=== PATIENT | female | born 1975 | race Caucasian/White ===

== ENCOUNTER 2017-01-28 12:45 | Emergency (ER) | payer OTHER ==
[~2017-01-28] VITALS: Ht 162.6 cm; Wt 107.9 kg
[2017-01-28 12:46] VITALS: BP 171/115
== END 2017-01-28 13:17 | disposition home or self-care (01) ==
LOC: ED 13:15
DX: Z76.1 Encounter for health supervision and care of foundling (principal); Z53.21 Procedure and treatment not carried out due to patient leaving prior to being seen by health care provider

== ENCOUNTER → 2017-05-12 | Outpatient (CLI) | payer OTHER ==
[2017-05-12 11:40] LABS: HEMATOCRIT 39.7 % (34.6-47.8); WHITE BLOOD COUNT 7.2 x10^3/uL (3.4-10)
[2017-05-12 11:46] LABS: ASPARTATE AMINO TRANSFERASE 11 U/L (15-37); BLOOD UREA NITROGEN 13 mg/dL (7-18)
== END | disposition home or self-care (01) ==
LOC: LAB 11:20
PROVIDERS: ATTEND Family Medicine
DX: Z13.220 Encounter for screening for lipoid disorders (principal); Z13.1 Encounter for screening for diabetes mellitus; R53.83 Other fatigue; E78.5 Hyperlipidemia, unspecified; E55.9 Vitamin D deficiency, unspecified; R79.89 Other specified abnormal findings of blood chemistry
CPT/HCPCS: 36415; 80053; 80061; 82306; 82607; 82746; 83036; 84443; 85025

== ENCOUNTER → 2017-05-13 | Outpatient (CLI) | payer OTHER | END | disposition home or self-care (01) | LOC: CFH 09:06 | PROVIDERS: ATTEND Family Medicine | DX: Z12.31 Encounter for screening mammogram for malignant neoplasm of breast (principal); E04.2 Nontoxic multinodular goiter | CPT/HCPCS: 76536; G0202 ==

== ENCOUNTER → 2017-05-20 | Outpatient (CLI) | payer OTHER ==
[2017-05-20 15:29] LABS: HIV 1&2 ANTIBODY SCREEN Nonreactive (Nonreactive); HIV-1 p24 ANTIGEN Nonreactive (Nonreactive)
[2017-05-21 06:11] LABS: HSV 2 IGG TYPE SPECIFIC <0.91 index (0.00-0.90)
== END | disposition home or self-care (01) ==
LOC: LAB 14:30
PROVIDERS: ATTEND Family Medicine
DX: Z11.3 Encounter for screening for infections with a predominantly sexual mode of transmission (principal)
CPT/HCPCS: 36415; 86592; 86695; 86696; 86703; 87491; 87591; 87899; G0435

== ENCOUNTER → 2017-11-26 | Outpatient (CLI) | payer OTHER ==
[2017-11-26 12:21] LABS: CHOL/HDL RATIO 2.2; THYROID STIMULATING HORMONE 2.76 mIU/L (0.358-3.740)
[2017-11-26 12:53] LABS: HEMOGLOBIN A1C 5.3 % (4.2-6.3)
== END | disposition home or self-care (01) ==
LOC: LAB 11:27
PROVIDERS: ATTEND Family Medicine
DX: Z13.220 Encounter for screening for lipoid disorders (principal); Z13.1 Encounter for screening for diabetes mellitus; E04.1 Nontoxic single thyroid nodule; E55.9 Vitamin D deficiency, unspecified; R79.89 Other specified abnormal findings of blood chemistry
CPT/HCPCS: 36415; 80061; 82306; 83036; 84443

== ENCOUNTER → 2018-05-17 | Outpatient (CLI) | payer OTHER | END | disposition home or self-care (01) | LOC: CFH 12:43 | PROVIDERS: ATTEND Family Medicine | DX: Z12.31 Encounter for screening mammogram for malignant neoplasm of breast (principal) | CPT/HCPCS: 77063; 77067 ==

== ENCOUNTER → 2018-06-01 | Outpatient (CLI) | payer OTHER ==
[2018-06-01 10:37] LABS: HCT (SEDRATE) 39.8 % (34.6-47.8)
== END | disposition home or self-care (01) ==
LOC: RAD 09:49
PROVIDERS: ATTEND Family Medicine
DX: R06.02 Shortness of breath (principal); M25.50 Pain in unspecified joint; R53.83 Other fatigue; R60.0 Localized edema; M79.89 Other specified soft tissue disorders
CPT/HCPCS: 36415; 71046; 82306; 84443; 85651; 86038; 86430; 86592; 86696; 87491; 87591; 87806; 93970; G0475

== ENCOUNTER → 2018-06-14 | Outpatient (CLI) | payer OTHER | END | disposition home or self-care (01) | LOC: CVU 13:16 | PROVIDERS: ATTEND Family Medicine | DX: I83.813 Varicose veins of bilateral lower extremities with pain (principal) | CPT/HCPCS: 93306; 93970 ==

== ENCOUNTER → 2019-01-02 | Outpatient (CLI) | payer OTHER ==
[2019-01-02 10:13] LABS: BASOPHILS # (AUTO) 0.04 x10^3/uL (0-0.1); BASOPHILS % (AUTO) 1 % (0-1); EOSINOPHILS # (AUTO) 0.11 x10^3/uL (0-0.4); EOSINOPHILS % (AUTO) 2 % (1-7); LYMPHOCYTES # (AUTO) 1.34 x10^3/uL (1-3.4); LYMPHOCYTES % (AUTO) 20 % (22-44); MD NO; MEAN CORPUSCULAR HEMOGLOBIN 26.8 pg (27.0-34.8); MEAN CORPUSCULAR HGB CONC 33.7 g/dL (32.4-35.8); MEAN CORPUSCULAR VOLUME 79.5 fL (80-100); MEAN PLATELET VOLUME 9.8 fL (7.4-10.4); MONOCYTES % (AUTO) 4 % (2-9); NEUTROPHILS # (AUTO) 4.98 x10^3/uL (1.8-6.8); NEUTROPHILS % (AUTO) 74 % (42-75); PLATELET COUNT 237 x10^3/uL (130-400); RED CELL DISTRIBUTION WIDTH 14.2 % (9.6-15.2)
[2019-01-02 10:21] LABS: CHLORIDE 111 mmol/L (98-107)
[2019-01-02 10:24] LABS: ALANINE AMINOTRANSFERASE 16 U/L (12-78); ALKALINE PHOSPHATASE 75 U/L (45-117); BILIRUBIN,TOTAL 0.6 mg/dL (0.2-1.0); CHOLESTEROL, TOTAL 157 mg/dL (140-239); TOTAL PROTEIN 7.1 g/dL (6.4-8.2); TRIGLYCERIDES 122 mg/dL (50-200); VLDL CHOLESTEROL 24 mg/dL (0-25)
[2019-01-02 10:30] LABS: ALBUMIN 3.6 g/dL (3.4-5.0); ANION GAP 7 mmol/L (5-15); CALCIUM 8.5 mg/dL (8.5-10.1); CHOL/HDL RATIO 3.4; FREE T4 (FREE THYROXINE) 1.24 ng/dL (0.76-1.46); HDL CHOL % 29 % (28-40); HDL CHOLESTEROL (DIRECT) 46 mg/dL (40-60); LDL CHOLESTEROL,CALCULATED 87 mg/dL (54-169); LDL/HDL RATIO 1.9 (0.5-3.0)
[2019-01-02 10:42] LABS: MICROSCOPIC AUTO
[2019-01-02 12:08] LABS: HEMOGLOBIN A1C 5.6 % (4.2-6.3)
== END | disposition home or self-care (01) ==
LOC: LAB 09:19
PROVIDERS: ATTEND Family Medicine
DX: Z00.00 Encounter for general adult medical examination without abnormal findings (principal)
CPT/HCPCS: 36415; 80053; 80061; 81001; 83036; 84439; 84443; 84481; 84702; 85025; 86592; 86696; 86803; 87340; 87491; 87591; 87806; G0475

== ENCOUNTER 2019-02-04 19:46 | Emergency (ER) | payer OTHER ==
[~2019-02-04] VITALS: Ht 162.6 cm; Wt 113.0 kg
[2019-02-04] MEDS ORDERED: KETOROLAC 30 MG/1 ML ONE (20:48)
[2019-02-04] MEDS ORDERED: METHOCARBAMOL 750 MG TABLET ONE (20:48)
[2019-02-04] MEDS ORDERED: HYDROcodone/APAP 5/325 TABLET ONE (20:49)
--- NOTE | 2019-02-04 20:50 | NUR ---
pt to us. report to britt huitron.
[2019-02-04] MEDS ORDERED: METHOCARBAMOL 750 MG TABLET PO ONE (21:00)
[2019-02-04] MEDS ORDERED: HYDROcodone/APAP 5/325 TABLET PO ONE (21:00)
[2019-02-04] MEDS ORDERED: KETOROLAC 30 MG/1 ML IM ONE (21:00)
--- NOTE | 2019-02-04 21:10 | NUR ---
pt to ed for mglf with pain to lower back after hitting metal trash can this afternoon. pt connected to monitors. vss. edmd assessment complete. orders received. labs drawn. hcg negative. pt medicated per nov. awaiting xr.
--- NOTE | 2019-02-04 21:20 | NUR ---
pt to imaging.
--- NOTE | 2019-02-04 21:38 | NUR ---
pt back from rad. new orders for us recevied at this time.
[2019-02-04] MEDS ORDERED: MORPHINE SULFATE 4 MG/ML, 1ML ONE (22:14)
[2019-02-04] MEDS ORDERED: ONDANSETRON 2MG/ML, 2ML ONE (22:14)
[2019-02-04] MEDS ORDERED: MORPHINE SULFATE 4 MG/ML, 1ML IVPush ONE (22:30)
[2019-02-04] MEDS ORDERED: ONDANSETRON 2MG/ML, 2ML IVPush ONE (22:30)
[2019-02-04 22:35] LABS: BASOPHILS # (AUTO) 0.04 x10^3/uL (0-0.1); BASOPHILS % (AUTO) 1 % (0-1); EOSINOPHILS # (AUTO) 0.29 x10^3/uL (0-0.4); EOSINOPHILS % (AUTO) 4 % (1-7); LYMPHOCYTES # (AUTO) 2.22 x10^3/uL (1-3.4); LYMPHOCYTES % (AUTO) 27 % (22-44); MD NO; MEAN CORPUSCULAR HEMOGLOBIN 26.6 pg (27.0-34.8); MEAN CORPUSCULAR HGB CONC 32.7 g/dL (32.4-35.8); MEAN CORPUSCULAR VOLUME 81.4 fL (80-100); MEAN PLATELET VOLUME 10.7 fL (7.4-10.4); MONOCYTES # (AUTO) 0.33 x10^3/uL (0.2-0.8); MONOCYTES % (AUTO) 4 % (2-9); NEUTROPHILS # (AUTO) 5.48 x10^3/uL (1.8-6.8); NEUTROPHILS % (AUTO) 66 % (42-75); PLATELET COUNT 301 x10^3/uL (130-400); RED BLOOD COUNT 5.08 x10^6/uL (3.82-5.3); RED CELL DISTRIBUTION WIDTH 14.5 % (9.6-15.2)
[2019-02-04 22:44] LABS: ALBUMIN 4.1 g/dL (3.4-5.0); ANION GAP 11 mmol/L (5-15); CALCIUM 9.1 mg/dL (8.5-10.1); CHLORIDE 108 mmol/L (98-107)
--- NOTE | 2019-02-04 22:46 | NUR ---
PIV STARTED. PT MEDICATED PER EMAR WITH MORPHINE AND ZOFRAN. URINE SAMPLE COLLECTED AND SENT.
[2019-02-04 22:47] LABS: ALANINE AMINOTRANSFERASE 17 U/L (12-78); ALKALINE PHOSPHATASE 83 U/L (45-117); BILIRUBIN,TOTAL 0.4 mg/dL (0.2-1.0); CREATININE 0.96 mg/dL (0.55-1.02); TOTAL PROTEIN 7.8 g/dL (6.4-8.2)
[2019-02-04 22:52] LABS: CULTURE INDICATED? YES; MICROSCOPIC INDICATED
--- NOTE | 2019-02-04 23:52 | NUR ---
PT SLEEPING. VSS. UPDATED ON POC.
[2019-02-04 23:53] VITALS: BP 133/71
--- NOTE | 2019-02-05 00:42 | NUR ---
PT UPDATED ON POC. VSS.
[2019-02-05] MEDS ORDERED: HYDROcodone/APAP 5/325 TABLET ONE (00:46)
[2019-02-05] MEDS ORDERED: HYDROcodone/APAP 5/325 TABLET PO ONE (01:00)
--- NOTE | 2019-02-05 01:56 | NUR ---
CONSULTING SERVICES ASSOCIATE: PT SEEN AMBULATING STEADILY TO DC WITH PRIMARY RNLANG.
[2019-02-05] MEDS ORDERED: OMNIPAQUE 350 MG/ML, 100ML BOTTLE ONE (02:55)
== END 2019-02-05 01:58 | disposition home or self-care (01) ==
LOC: ED 21:41
DX: S32.019A Unspecified fracture of first lumbar vertebra, initial encounter for closed fracture (principal); W01.0XXA Fall on same level from slipping, tripping and stumbling without subsequent striking against object, initial encounter; Y93.89 Activity, other specified; Y92.69 Other specified industrial and construction area as the place of occurrence of the external cause; Y99.0 Civilian activity done for income or pay
CPT/HCPCS: 36415; 72110; 72128; 72131; 74177; 76770; 80053; 81001; 84703; 85025; 87086; 96372; 96374; 96375; 99284; J1885; J2405; Q9967; 96376; J2270

== ENCOUNTER 2019-03-11 18:22 | Emergency (ER) | payer OTHER ==
[~2019-03-11] VITALS: Ht 162.6 cm; Wt 112.5 kg
[2019-03-11 18:25] VITALS: BP 131/82
[2019-03-11] MEDS ORDERED: LIDOCAINE-MPF 1%, 5ML ONE (18:37)
[2019-03-11] MEDS ORDERED: LIDOCAINE-MPF 1%, 5ML INFIL ONE (19:00)
== END 2019-03-11 19:07 | disposition home or self-care (01) ==
LOC: ED 18:48
DX: S61.412A Laceration without foreign body of left hand, initial encounter (principal); X58.XXXA Exposure to other specified factors, initial encounter; Y93.89 Activity, other specified; Y92.009 Unspecified place in unspecified non-institutional (private) residence as the place of occurrence of the external cause; Y99.8 Other external cause status
CPT/HCPCS: 12041; 99284

== ENCOUNTER → 2019-03-16 | Outpatient (CLI) | payer OTHER | END | disposition home or self-care (01) | LOC: RAD 14:31 | PROVIDERS: ATTEND Family Medicine | DX: N83.202 Unspecified ovarian cyst, left side (principal); N20.0 Calculus of kidney; S32.038D Other fracture of third lumbar vertebra, subsequent encounter for fracture with routine healing; S32.028D Other fracture of second lumbar vertebra, subsequent encounter for fracture with routine healing; M43.17 Spondylolisthesis, lumbosacral region; M51.17 Intervertebral disc disorders with radiculopathy, lumbosacral region; M25.78 Osteophyte, vertebrae; M51.44 Schmorl's nodes, thoracic region; X58.XXXD Exposure to other specified factors, subsequent encounter | CPT/HCPCS: 74176 ==

== ENCOUNTER 2020-01-13 12:29 | Outpatient (CLI) | payer OTHER ==
[2020-01-13 12:56] LABS: BASOPHILS # (AUTO) 0.04 x10^3/uL (0-0.1); BASOPHILS % (AUTO) 1 % (0-1); EOSINOPHILS # (AUTO) 0.04 x10^3/uL (0-0.4); EOSINOPHILS % (AUTO) 1 % (1-7); LYMPHOCYTES # (AUTO) 1.53 x10^3/uL (1-3.4); LYMPHOCYTES % (AUTO) 21 % (22-44); MD NO; MEAN CORPUSCULAR HEMOGLOBIN 25.4 pg (27.0-34.8); MEAN CORPUSCULAR HGB CONC 32.9 g/dL (32.4-35.8); MEAN CORPUSCULAR VOLUME 77.2 fL (80-100); MEAN PLATELET VOLUME 9.9 fL (7.4-10.4); MONOCYTES # (AUTO) 0.38 x10^3/uL (0.2-0.8); MONOCYTES % (AUTO) 5 % (2-9); NEUTROPHILS # (AUTO) 5.41 x10^3/uL (1.8-6.8); NEUTROPHILS % (AUTO) 73 % (42-75); PLATELET COUNT 243 x10^3/uL (130-400); RED BLOOD COUNT 5.12 x10^6/uL (3.82-5.3); RED CELL DISTRIBUTION WIDTH 14.8 % (9.6-15.2)
[2020-01-13 13:06] LABS: ALANINE AMINOTRANSFERASE 16 U/L (12-78); ALBUMIN 3.6 g/dL (3.4-5.0); ANION GAP 8 mmol/L (5-15); CALCIUM 8.8 mg/dL (8.5-10.1); CHLORIDE 109 mmol/L (98-107); CHOLESTEROL, TOTAL 166 mg/dL (140-239); CREATININE 0.82 mg/dL (0.55-1.02); TRIGLYCERIDES 116 mg/dL (50-200); VLDL CHOLESTEROL 23 mg/dL (0-25)
[2020-01-13 13:16] LABS: ALKALINE PHOSPHATASE 85 U/L (45-117); BILIRUBIN,TOTAL 0.6 mg/dL (0.2-1.0); CHOL/HDL RATIO 3.3; HDL CHOL % 30 % (28-40); HDL CHOLESTEROL (DIRECT) 50 mg/dL (40-60); LDL CHOLESTEROL,CALCULATED 93 mg/dL (54-169); LDL/HDL RATIO 1.9 (0.5-3.0); TOTAL PROTEIN 7.5 g/dL (6.4-8.2)
== END 2020-01-13 23:59 | disposition home or self-care (01) ==
LOC: LAB 12:29
PROVIDERS: ATTEND Family Medicine
DX: Z13.1 Encounter for screening for diabetes mellitus (principal); Z13.220 Encounter for screening for lipoid disorders; E04.1 Nontoxic single thyroid nodule; E55.9 Vitamin D deficiency, unspecified; R53.83 Other fatigue
CPT/HCPCS: 36415; 80053; 80061; 82306; 83036; 84443; 85025

== ENCOUNTER 2020-03-29 04:39 | Emergency (ER) | payer OTHER ==
[~2020-03-29] VITALS: Ht 162.6 cm; Wt 120.0 kg
--- NOTE | 2020-03-29 05:06 | NUR ---
FIRST CONTACT WITH PT: PT SITTING ON GURNEY, WEAR LETY MUIR AT BS FOR EVAL AND POC. PT REPORTS NAUSEA STARTING TWO WEEKS PRIOR AFTER EYE INFECTION. PT IN TODAY DUE TO ABDOMINAL PAIN AND CRAMPING AFTER EATING POPCORN IN [place], PT HAS HX OF DIVERTICULITIS SINCE LAST EVENING AT 6 AM. LAST MENSTRUAL PERIOD 02/25, PT NOT USING PROTECTION AT THIS TIME PT NAD, VSS, AT BS. PT PLACE ON BP/SPO2 MONITOR. WCTM. GIVEN WARM BLANKET FOR COMFORT.
[2020-03-29] MEDS ORDERED: ONDANSETRON 2MG/ML, 2ML ONE (05:26)
[2020-03-29] MEDS ORDERED: HYDROmorphone 1 MG/ML, 1ML INJ ONE ×2 (05:26→07:50)
[2020-03-29] MEDS ORDERED: SODIUM CHLORIDE FLUSH 10ML SYR IVF ONE (05:30)
[2020-03-29] MEDS ORDERED: ONDANSETRON 2MG/ML, 2ML IVPush ONE (05:30)
[2020-03-29] MEDS: HYDROmorphone 2 MG/ML, 1ML IVPush PRN ×2 (05:43→07:57)
[2020-03-29 06:03] LABS: MICROSCOPIC INDICATED
--- NOTE | 2020-03-29 06:03 | NUR ---
PT MEDICATED PER MAR, LABS SENT AND UA SENT. AT BS. NOT CHANGE IN CONDITION, WCTM. CALL LIGHT ON LAP. DENIES ADDITIONAL NEEDS AT THIS TIME.
[2020-03-29 06:21] LABS: INTERNATIONAL NORMALIZED RATIO 0.98 (0.93-1.1); MEAN CORPUSCULAR HEMOGLOBIN 25.6 pg (27.0-34.8); MEAN CORPUSCULAR HGB CONC 32.8 g/dL (32.4-35.8); MEAN CORPUSCULAR VOLUME 77.9 fL (80-100); MEAN PLATELET VOLUME 10.4 fL (7.4-10.4); PLATELET COUNT 194 x10^3/uL (130-400); PROTHROMBIN TIME 10.4 Seconds (9.6-11.5); RED BLOOD COUNT 4.82 x10^6/uL (3.82-5.3); RED CELL DISTRIBUTION WIDTH 14.9 % (9.6-15.2)
[2020-03-29 06:29] LABS: CHLORIDE 110 mmol/L (98-107)
[2020-03-29 06:39] LABS: ALANINE AMINOTRANSFERASE 18 U/L (12-78); ALBUMIN 3.6 g/dL (3.4-5.0); ALKALINE PHOSPHATASE 76 U/L (45-117); ANION GAP 7 mmol/L (5-15); BILIRUBIN,TOTAL 0.6 mg/dL (0.2-1.0); CALCIUM 8.7 mg/dL (8.5-10.1); CREATININE 0.85 mg/dL (0.55-1.02); TOTAL PROTEIN 7.3 g/dL (6.4-8.2)
[2020-03-29 06:55] LABS: MD YES
[2020-03-29 06:56] LABS: BAND#(MANUAL) 0.26 x10^3/uL; BANDS%(MANUAL) 2 % (0-7); LYMPH#(MANUAL) 0.66 x10^3/uL (1-3.4); LYMPHS% (MANUAL) 5 % (22-44); MONOS% (MANUAL) 3 % (2-9); SEG#(MANUAL) 11.88 x10^3/uL (1.8-6.8); SEGS% (MANUAL) 90 % (42-75)
[2020-03-29 06:58] LABS: <PLATELET ESTIMATE> ADEQUATE; <PLT MORPHOLOGY> NORMAL PLT MORPH
[2020-03-29 06:59] LABS: ANISOCYTOSIS 1+
[2020-03-29] MEDS ORDERED: SODIUM CHLORIDE 0.9% 1,000ML IVBOLUS ONE (07:00)
[2020-03-29] MEDS ORDERED: CEFTRIAXONE PMX 1GM/50ML 50 ML IV ONE ×2 (07:00→09:00)
--- NOTE | 2020-03-29 07:05 | NUR ---
REPORT TO JAYASHREE BENITES, PT CARE TRANSFERRED AT THIS TIME.
[2020-03-29] MEDS ORDERED: CEFTRIAXONE PMX 1GM/50ML 50 ML ONE (07:50)
[2020-03-29] MEDS ORDERED: OMNIPAQUE 350 MG/ML, 100ML BOTTLE ONE (07:51)
--- NOTE | 2020-03-29 08:05 | NUR ---
ORDERED ABX STARTED. BLOOD CULTURES HAVE BEEN PREVIOUSLY DRAWN. PT MEDICATED WITH ORDERED PAIN MEDS FOR CONTINUING ABD PAIN. ORDERED FLUIDS INFUSING. WILL CONTINUE TO MONITOR.
[2020-03-29] MEDS ORDERED: METRONIDAZOLE PMX 500MG/100ML 100 ML IV ONE (09:00)
[2020-03-29] MEDS ORDERED: AZITHROMYCIN 500 MG TABLET PO ONE (09:00)
[2020-03-29] MEDS ORDERED: METRONIDAZOLE PMX 500MG/100ML 100 ML ONE (09:06)
--- NOTE | 2020-03-29 09:11 | NUR ---
REPORT RECEIVED JAYASHREE BENITES. PT C/O PAIN AND NAUSEA, CANT LAY DOWN, WILL NOTIFY MD.
[2020-03-29] MEDS ORDERED: AZITHROMYCIN 500 MG TABLET ONE (09:18)
[2020-03-29] MEDS ORDERED: KETOROLAC 30 MG/1 ML ONE (09:18)
[2020-03-29] MEDS ORDERED: METOCLOPRAMIDE 5 MG/ML, 2ML ONE (09:18)
[2020-03-29] MEDS ORDERED: METOCLOPRAMIDE 5 MG/ML, 2ML IVPush ONE (09:30)
[2020-03-29] MEDS ORDERED: KETOROLAC 30 MG/1 ML IVPush ONE (09:30)
--- NOTE | 2020-03-29 09:30 | NUR ---
PER ERP, NO NEED FOR FLUIDS PER SEPSIS PROTOCOL AT THIS TIME. PT VSS.
[2020-03-29 09:34] LABS: CLUE CELLS PRESENT (NONE SEEN); WET PREP WBCS MANY (FEW)
--- NOTE | 2020-03-29 09:54 | NUR ---
pain/nausea relieved by meds. pt sleeping for first time. flagyl infusing. fam at bedside. as
[2020-03-29 11:03] VITALS: BP 101/54
== END 2020-03-29 11:04 | disposition home or self-care (01) ==
LOC: ED 07:34
DX: N30.00 Acute cystitis without hematuria (principal); R11.2 Nausea with vomiting, unspecified; Z91.013 Allergy to seafood
CPT/HCPCS: 36415; 74177; 80053; 81001; 83605; 83690; 84145; 84703; 85025; 85610; 87040; 87086; 87210; 87491; 87591; 87808; 96365; 96366; 96368; 96375; 96376; 99285; J0696; J1170; J1885; J2405; J2765; J7030; Q9967

== ENCOUNTER 2020-03-30 11:31 | Inpatient (IN) | payer OTHER ==
[~2020-03-30] VITALS: Ht 162.6 cm; Wt 103.0 kg
[2020-03-30] MEDS ORDERED: SODIUM CHLORIDE FLUSH 10ML SYR IVF ONE (12:00)
[2020-03-30] MEDS ORDERED: ONDANSETRON 2MG/ML, 2ML IVPush ONE (12:00)
[2020-03-30] MEDS ORDERED: ONDANSETRON 2MG/ML, 2ML ONE ×2 (12:02→19:46)
[2020-03-30] MEDS ORDERED: HYDROmorphone 1 MG/ML, 1ML INJ ONE ×2 (12:02→14:00)
[2020-03-30] MEDS: HYDROmorphone 2 MG/ML, 1ML IVPush PRN ×2 (12:07→14:04)
--- NOTE | 2020-03-30 12:13 | NUR ---
PT C/O INCREASING ABD PAIN, FLANK PAIN SINCE TUESDAY AND WAS SEEN HERE YESTERDAY FOR THE SAME. PT WAS TO BE ADMITTED YESTERDAY BUT REFUSED DUE TO MOM BEING IN TOWN. PT MEDICATED ORDERED. REPORT TO BULL BENITES.
[2020-03-30 12:19] LABS: MEAN CORPUSCULAR HEMOGLOBIN 25.7 pg (27.0-34.8); MEAN CORPUSCULAR HGB CONC 32.4 g/dL (32.4-35.8); MEAN CORPUSCULAR VOLUME 79.3 fL (80-100); MEAN PLATELET VOLUME 9.8 fL (7.4-10.4); PLATELET COUNT 205 x10^3/uL (130-400); RED BLOOD COUNT 4.62 x10^6/uL (3.82-5.3); RED CELL DISTRIBUTION WIDTH 15.2 % (9.6-15.2)
[2020-03-30 12:23] LABS: ALANINE AMINOTRANSFERASE 16 U/L (12-78); ALBUMIN 3.2 g/dL (3.4-5.0); ANION GAP 6 mmol/L (5-15); CALCIUM 8.6 mg/dL (8.5-10.1); CHLORIDE 108 mmol/L (98-107); CREATININE 1.01 mg/dL (0.55-1.02)
[2020-03-30 12:26] LABS: ALKALINE PHOSPHATASE 82 U/L (45-117); BILIRUBIN,TOTAL 0.9 mg/dL (0.2-1.0); TOTAL PROTEIN 7.4 g/dL (6.4-8.2)
[2020-03-30 12:36] LABS: BASOPHILS # (AUTO) 0.05 x10^3/uL (0-0.1); BASOPHILS % (AUTO) 0 % (0-1); EOSINOPHILS # (AUTO) 0.04 x10^3/uL (0-0.4); EOSINOPHILS % (AUTO) 0 % (1-7); LYMPHOCYTES # (AUTO) 0.96 x10^3/uL (1-3.4); LYMPHOCYTES % (AUTO) 5 % (22-44); MD SCAN; MONOCYTES # (AUTO) 0.47 x10^3/uL (0.2-0.8); MONOCYTES % (AUTO) 3 % (2-9); NEUTROPHILS # (AUTO) 16.34 x10^3/uL (1.8-6.8); NEUTROPHILS % (AUTO) 92 % (42-75)
[2020-03-30] MEDS ORDERED: CEFTRIAXONE PMX 1GM/50ML 50 ML ONE (14:00)
[2020-03-30] MEDS ORDERED: METRONIDAZOLE PMX 500MG/100ML 100 ML IV ONE (14:00)
[2020-03-30] MEDS ORDERED: CEFTRIAXONE PMX 1GM/50ML 50 ML IV ONE (14:00)
[2020-03-30] MEDS ORDERED: SODIUM CHLORIDE 0.9% 1,000 ML IV ONE (14:03)
[2020-03-30] MEDS ORDERED: ONDANSETRON 2MG/ML, 2ML IVPush PRN ×2 (14:30→15:30)
[2020-03-30] MEDS ORDERED: SODIUM CHLORIDE FLUSH 10ML SYR IVF PRN (14:30)
[2020-03-30] MEDS ORDERED: METRONIDAZOLE PMX 500MG/100ML 100 ML ONE (15:09)
[2020-03-30] MEDS ORDERED: ACETAMINOPHEN 325 MG TABLET PO PRN (15:30)
[2020-03-30] MEDS ORDERED: IBUPROFEN 600 MG TABLET PO PRN (15:30)
[2020-03-30] MEDS ORDERED: HYDROcodone/APAP 5/325 TABLET PO PRN (15:30)
[2020-03-30] MEDS ORDERED: DOCUSATE 100 MG CAPSULE PO PRN (15:30)
[2020-03-30] MEDS ORDERED: KETOROLAC 30 MG/1 ML IM PRN (15:30)
[2020-03-30] MEDS: METRONIDAZOLE PMX 500MG/100ML 100 ML IV SCH (15:30)
[2020-03-30] MEDS ORDERED: MELATONIN 5 MG TABLET PO PRN (15:30)
[2020-03-30] MEDS ORDERED: morphine SULFATE 10 MG/ML, 1ML IVPush PRN (15:30)
[2020-03-30] MEDS ORDERED: CEFTRIAXONE 1,000 MG IM SCH (15:30)
[2020-03-30] MEDS ORDERED: ENALAPRILAT 1.25 MG/ML, 2ML IVPush PRN (15:30)
[2020-03-30] MEDS ORDERED: DIPHENHYDRAMINE 25 MG CAPSULE PO PRN (15:30)
[2020-03-30] MEDS: LACTATED RINGERS 1,000 ML IV SCH (16:00)
[2020-03-30] MEDS ORDERED: predniSOLONE OPHTH SUSP 1%, 5ML EACHEYE SCH (16:00)
--- NOTE | 2020-03-30 17:22 | NUR ---
PT ON HOSPITAL BED AND PROVIDED WITH WATER PER REQUEST. PT AMBULATED TO BATHROOM WITH STANDBY ASSIST AND TOLERATED WELL. NO ACUTE S/S OF DISTRESS. DENIES FURTHER NEEDS AT THIS TIME
[2020-03-30] MEDS: PREDNISOLONE 1% EACHEYE SCH ×2 (17:44→23:07)
[2020-03-30] MEDS ORDERED: ONDANSETRON ODT 4 MG ONE (17:46)
[2020-03-30] MEDS: ONDANSETRON ODT 4 MG PO PRN (17:46)
[2020-03-30] MEDS ORDERED: MORPHINE SULFATE 4 MG/ML, 1ML ONE (19:37)
[2020-03-30] MEDS: MORPHINE SULFATE 4 MG/ML, 1ML IVPush PRN (19:39)
[2020-03-30] MEDS ORDERED: DOCUSATE 100 MG CAPSULE ONE (19:47)
[2020-03-30] MEDS ORDERED: BISACODYL 10 MG SUPP ONE (22:57)
[2020-03-30] MEDS: FAMOTIDINE 10 MG TAB PO SCH (23:06)
[2020-03-30] MEDS: BISACODYL 10 MG SUPP PR SCH (23:06)
[2020-03-30 23:12] VITALS: BP 108/73
[2020-03-31] MEDS: ONDANSETRON ODT 4 MG PO PRN (00:15)
[2020-03-31] MEDS: LACTATED RINGERS 1,000 ML IV SCH ×2 (00:16→09:34)
[2020-03-31] MEDS: METRONIDAZOLE PMX 500MG/100ML 100 ML IV SCH ×2 (00:31→09:31)
[2020-03-31 05:17] VITALS: BP 141/77
[2020-03-31] MEDS: PREDNISOLONE 1% EACHEYE SCH ×2 (05:20→11:00)
[2020-03-31 05:44] LABS: MICROSCOPIC INDICATED
[2020-03-31 06:35] LABS: BASOPHILS # (AUTO) 0.01 x10^3/uL (0-0.1); BASOPHILS % (AUTO) 0 % (0-1); EOSINOPHILS # (AUTO) 0.05 x10^3/uL (0-0.4); EOSINOPHILS % (AUTO) 1 % (1-7); LYMPHOCYTES # (AUTO) 1.18 x10^3/uL (1-3.4); LYMPHOCYTES % (AUTO) 11 % (22-44); MD NO; MEAN CORPUSCULAR HEMOGLOBIN 25.5 pg (27.0-34.8); MEAN CORPUSCULAR HGB CONC 32.2 g/dL (32.4-35.8); MEAN CORPUSCULAR VOLUME 79.2 fL (80-100); MONOCYTES # (AUTO) 0.52 x10^3/uL (0.2-0.8); MONOCYTES % (AUTO) 5 % (2-9); NEUTROPHILS # (AUTO) 8.63 x10^3/uL (1.8-6.8); NEUTROPHILS % (AUTO) 83 % (42-75); PLATELET COUNT 182 x10^3/uL (130-400); RED BLOOD COUNT 3.82 x10^6/uL (3.82-5.3)
[2020-03-31 06:42] LABS: ANION GAP 5 mmol/L (5-15); CALCIUM 8.2 mg/dL (8.5-10.1); CHLORIDE 111 mmol/L (98-107); CREATININE 0.92 mg/dL (0.55-1.02)
[2020-03-31 06:59] VITALS: BP 109/76
[2020-03-31] MEDS ORDERED: SENNA/DOCUSATE TABLET PO SCH (09:00)
[2020-03-31] MEDS ORDERED: MAGNESIUM HYDROXIDE 8%, 30ML UDC PO PRN (09:30)
[2020-03-31] MEDS: FAMOTIDINE 10 MG TAB PO SCH (09:33)
[2020-03-31] MEDS: BISACODYL 10 MG SUPP PR SCH (09:34)
[2020-03-31] MEDS: MORPHINE SULFATE 4 MG/ML, 1ML IVPush PRN (09:43)
[2020-03-31 12:45] VITALS: BP 109/76
[2020-03-31] MEDS ORDERED: CEFD300C37 PO (14:38)
[2020-03-31] MEDS ORDERED: IBUP-1222 PO (14:38)
[2020-03-31] MEDS ORDERED: CEFTRIAXONE PMX 1GM/50ML 50 ML IV SCH (15:00)
[2020-03-31] MEDS ORDERED: CEFTRIAXONE 1,000 MG IV SCH (15:30)
[2020-03-31] MEDS ORDERED: METR-90 PO (16:26)
== END 2020-03-31 17:16 | disposition home or self-care (01) | DRG 872 ==
LOC: ED 14:32 → EDIP 15:07 → 4NW 22:19
PROVIDERS: ADMIT Hospitalist; ATTEND Hospitalist
DX: A41.9 Sepsis, unspecified organism (principal); N39.0 Urinary tract infection, site not specified; H10.9 Unspecified conjunctivitis; N73.9 Female pelvic inflammatory disease, unspecified; Z03.818 Encounter for observation for suspected exposure to other biological agents ruled out; Z91.013 Allergy to seafood; Z82.49 Family history of ischemic heart disease and other diseases of the circulatory system; Z83.3 Family history of diabetes mellitus
CPT/HCPCS: 36415; 76830; 80048; 80053; 81001; 83690; 85025; 87086; 87635; 96365; 96375; 96376; G0378; J0696; J1170; J1885; J2405; Q0162; J2270; J7030; J7120

== ENCOUNTER 2020-04-14 12:28 | Outpatient (CLI) | payer OTHER ==
[~2020-04-14 12:28] MED LIST: CEFD300C37 PO; IBUP-1222 PO; METR-90 PO
== END 2020-04-14 23:59 | disposition home or self-care (01) ==
LOC: LAB 12:28
PROVIDERS: ATTEND Obstetrics & Gynecology
DX: Z11.3 Encounter for screening for infections with a predominantly sexual mode of transmission (principal)
CPT/HCPCS: 36415; 80074; 86592; 87806; G0475

== ENCOUNTER 2020-06-20 18:03 | Outpatient (CLI) | payer OTHER ==
[2020-06-20 21:34] LABS: FREE T4 (FREE THYROXINE) 1.08 ng/dL (0.76-1.46)
== END 2020-06-20 23:59 | disposition home or self-care (01) ==
LOC: LAB 18:03
PROVIDERS: ATTEND Obstetrics & Gynecology
DX: R89.1 Abnormal level of hormones in specimens from other organs, systems and tissues (principal)
CPT/HCPCS: 36415; 82397; 82670; 83001; 84146; 84439; 84443

== ENCOUNTER → 2020-07-08 | Outpatient (CLI) | payer OTHER ==
[~2020-07-08] MED LIST changes: +OMNIPAQUE 350 MG/ML, 50 ML BOTTLE ONE
== END | disposition home or self-care (01) ==
LOC: RAD 13:53
PROVIDERS: ATTEND Obstetrics & Gynecology
DX: N97.9 Female infertility, unspecified (principal)
CPT/HCPCS: 58340; 74740; Q9967

== ENCOUNTER 2020-07-19 17:22 | Emergency (ER) | payer OTHER ==
[~2020-07-19] VITALS: Ht 162.6 cm; Wt 118.0 kg
[~2020-07-19 17:22] MED LIST changes: -OMNIPAQUE 350 MG/ML, 50 ML BOTTLE ONE
[2020-07-19] MEDS ORDERED: METHOCARBAMOL 750 MG TABLET PO ONE (18:00)
[2020-07-19] MEDS ORDERED: METHOCARBAMOL 750 MG TABLET ONE (20:56)
[2020-07-19] MEDS ORDERED: ONDANSETRON ODT 4 MG ONE (20:56)
[2020-07-19] MEDS ORDERED: ONDANSETRON ODT 4 MG PO ONE (21:00)
--- NOTE | 2020-07-19 21:00 | NUR ---
LAB OBTAINED-SENT MEDICATED PER EMAR FOR NAUSEA AT 03/28
[2020-07-19] MEDS ORDERED: HYDROcodone/APAP 5/325 TABLET PO ONE (22:00)
[2020-07-19] MEDS ORDERED: DEXAMETHASONE 4 MG TABLET PO ONE (22:00)
[2020-07-19] MEDS ORDERED: DEXAMETHASONE 4 MG TABLET ONE (22:02)
[2020-07-19] MEDS ORDERED: HYDROcodone/APAP 5/325 TABLET ONE (22:02)
[2020-07-19 22:05] VITALS: BP 145/70
--- NOTE | 2020-07-19 22:16 | NUR ---
Medicated per EMAr for rigght arm/neck pain at 04/28 Provider to bedside to review testing results and dispo plan
== END 2020-07-19 22:37 | disposition home or self-care (01) ==
LOC: ED 22:13
DX: M54.12 Radiculopathy, cervical region (principal); R20.0 Anesthesia of skin
CPT/HCPCS: 36415; 72125; 72141; 84703; 99285; Q0162

== ENCOUNTER 2021-02-01 23:36 | Emergency (ER) | payer OTHER ==
[~2021-02-01] VITALS: Ht 162.6 cm; Wt 121.0 kg
[2021-02-01 23:38] VITALS: BP 149/92
[2021-02-01] MEDS ORDERED: CYCLOBENZAPRINE 10 MG TABLET ONE (23:44)
--- NOTE | 2021-02-01 23:47 | NUR ---
"I'VE HAD BACK SPASMS FOR A WEEK AND I CAN'T GET MY MUSCLES TO RELAX IN MY BACK. IT'S RIGHT IN THE AREA WHERE I BROKE IT 3 YEARS AGO". PT IN TRIAGE. ERP DR. LARA TO TRIAGE TO ASSESS PT. PT TO BE DC'D FROM TRIAGE.
[2021-02-02] MEDS ORDERED: CYCLOBENZAPRINE 10 MG TABLET PO ONE
== END 2021-02-01 23:56 | disposition home or self-care (01) ==
LOC: ED 23:45
DX: M54.5 Low back pain (principal); G89.29 Other chronic pain
CPT/HCPCS: 99283

== ENCOUNTER 2021-02-12 08:23 | Outpatient (CLI) | payer OTHER ==
[2021-02-12 08:41] LABS: BASOPHILS % (AUTO) 1 % (0-1); EOSINOPHILS % (AUTO) 3 % (1-7); LYMPHOCYTES % (AUTO) 24 % (22-44); MEAN CORPUSCULAR HGB CONC 32.3 g/dL (32.4-35.8); MEAN PLATELET VOLUME 8.9 fL (7.4-10.4); MONOCYTES % (AUTO) 5 % (2-9); NEUTROPHILS % (AUTO) 67 % (42-75); PLATELET COUNT 226 x10^3/uL (130-400); RED BLOOD COUNT 4.77 x10^6/uL (3.82-5.3); RED CELL DISTRIBUTION WIDTH 15.1 % (9.6-15.2)
[2021-02-12 08:53] LABS: CHLORIDE 108 mmol/L (98-107)
[2021-02-12 09:10] LABS: ALANINE AMINOTRANSFERASE 19 U/L (12-78); ALBUMIN 3.4 g/dL (3.4-5.0); ALKALINE PHOSPHATASE 74 U/L (45-117); ANION GAP 4 mmol/L (5-15); BILIRUBIN,TOTAL 0.4 mg/dL (0.2-1.0); CALCIUM 8.8 mg/dL (8.5-10.1); CHOL/HDL RATIO 4.2; CHOLESTEROL, TOTAL 184 mg/dL (140-239); CREATININE 0.76 mg/dL (0.55-1.02); HDL CHOL % 24 % (28-40); HDL CHOLESTEROL (DIRECT) 44 mg/dL (40-60); LDL CHOLESTEROL,CALCULATED 125 mg/dL (54-169); LDL/HDL RATIO 2.8 (0.5-3.0); TRIGLYCERIDES 76 mg/dL (50-200); VLDL CHOLESTEROL 15 mg/dL (0-25)
== END 2021-02-12 23:59 | disposition home or self-care (01) ==
LOC: LAB 08:23
PROVIDERS: ATTEND Nurse Practitioner Primary Care
DX: Z13.220 Encounter for screening for lipoid disorders (principal); R53.83 Other fatigue; R73.03 Prediabetes
CPT/HCPCS: 36415; 80053; 80061; 82306; 83036; 84443; 85025